=== PATIENT | female | born 1975 | race Caucasian/White ===

== ENCOUNTER 2018-11-05 08:34 | Day surgery (SDC) | payer OTHER ==
[2018-11-05] MEDS ORDERED: CODE1TAB37 PO (13:30)
[2018-11-05] MEDS ORDERED: NAPROXEN500 MG PO (13:30)
== END 2018-11-05 17:30 | disposition home or self-care (01) ==
LOC: CIR.AMB 08:34
DX: Z30.2 Encounter for sterilization (principal)